=== PATIENT | female | born 1995 | race Caucasian/White ===

== ENCOUNTER 2018-04-24 18:08 | Emergency (ER) | payer MEDICAID, OTHER ==
[2018-04-24 19:21] LABS: URINE BLOOD (Dip) POC Negative (NEGATIVE); URINE KETONES (Dip) POC 1+ (NEGATIVE); URINE LEUKOCYTE EST (Dip) POC Negative (NEGATIVE); URINE NITRITE (Dip) POC Positive (NEGATIVE); URINE TOTAL PROTEIN POC 2+ (NEGATIVE)
[2018-04-24] MEDS: ACETAMINOPHEN 325 MG TAB PO (19:33)
== END 2018-04-24 20:34 | disposition home or self-care (01) ==
LOC: E/R 18:08
DX: J06.9 Acute upper respiratory infection, unspecified (principal); J45.909 Unspecified asthma, uncomplicated
CPT/HCPCS: 71045; 81003; 81025; 87400; 99284-25